=== PATIENT | female | born 1955 | race Caucasian/White ===

== ENCOUNTER 2017-01-07 14:55 | Emergency (ER) | payer OTHER ==
--- NOTE | ~2017-01-07 | EKG ---
PATIENT: AWA MCGINNIS UNIT #: [id number] Ventricular Rate: 97 BPM Atrial Rate: 97 BPM P-R Interval: 130 ms QRS Duration: 72 ms Q-T Interval: 384 ms QTC Calculation(Bezet): 487 ms P [place]: 48 degrees Calculated R [place]: 64 degrees Calculated T [place]: -35 degrees Diagnosis Line: Normal sinus rhythm Diagnosis Line: T wave abnormality, consider inferior ischemia Diagnosis Line: Abnormal ECG Diagnosis Line: When compared with ECG of 08-JUN-2014 11:14, Diagnosis Line: Vent. rate has increased BY 37 BPM Diagnosis Line: Inverted T waves have replaced nonspecific T wave Diagnosis Line: abnormality in Inferior leads Diagnosis Line: Confirmed by MAGDALENE BARRETO MD ([id number]) on 01/11/2017 Diagnosis Line: 9:39:56 AM INTERPRETING MD: ESTEVAN STONE
--- NOTE | ~2017-01-07 | CR72 ---
[facility]. [facility] A Service of [facility] & [facility] RADIOLOGY TEXT RESULTS PATIENT: AWA MCGINNIS LOCATION: SED : 55 UNIT #: [id number] AGE: [address]: Kimani Albarado MD SEX: F ORDER DR: [id number] [place] [id number] [id number] E MR#: [id number] #: [id number] NAME: AWA MCGINNIS : 1955 SEX: F STUDY DATE/TIME: 01/07/2017 15:22 UNIT: SED ROOM: STUDY DESCRIPTION: CR Chest Single View Portable Attending Physician: Kimani Albarado M.D. Ordering Physician: Kimani Albarado M.D. Primary Care Physician: Ophelia Roman MEDICAL IMAGING REPORT This report is preliminary unless electronic signature is present. EXAM Portable chest, 01/07 INDICATIONS Chest pain, shortness of air and headache for 45 minutes prior to arrival. History of smoking and hypertension. FINDINGS AP portable chest compared with 11/20/2013. Lungs are emphysematous but clear, except for granulomatous calcification. Cardiac and mediastinal contours are normal. No pneumothorax. Patient is status post cervical fusion. IMPRESSION Emphysema. No active disease. Dictated by... Elan Olsen Jr., M.D. THIS IS AN ELECTRONICALLY VERIFIED REPORT Elan Olsen Jr., M.D. at 01/07/2017 10:31 PM RLK/lynn TD: 01/07/2017 21:34 JOB #: [id number] MEDICAL IMAGING REPORT
[~2017-01-07 14:55] MED LIST: ALPRAZOLAM; ALPRAZOLAM PO; BARACLUDE PO; COUMADIN2.5 MG PO; CRESTOR10 MG PO; CYMBALTA PO; DENAVIR 1% TOP; DETROL LA PO; DIFLUCAN PO; IMDUR PO; IMITREX PO; LEVAQUIN PO; LISINOPRIL2.5 MG PO; LOPRESSOR; LOPRESSOR PO; METHADOSE PO; ORUDIS75 M1 PO; OXYCONTIN PO; PHENERGAN PO; PRILOSEC PO; PRILOSEC20 M1 PO; WELLBUTRIN PO
[2017-01-07 15:11] LABS: BASOPHIL% 0.6 % (0-2.5); EOSINOPHIL# 0.1 X10e3 (0-0.7); EOSINOPHIL% 1.3 % (0.0-7.0); HEMATOCRIT 46.5 % (35.0-45.0); HEMOGLOBIN 15.2 gm/dL (12.0-16.0); LYMPHOCYTE# 2.2 X10e3 (1.0-3.5); MEAN CELL VOLUME 91.4 FL (83-96); MEAN CORPUSCULAR HEMOGLOBIN 29.9 PG (28-34); MEAN CORPUSCULAR HGB CONC 32.7 g/dL (30-36); MEAN PLATELET VOLUME 8.3 FL (6.5-11.5); MONOCYTE# 0.6 X10e3 (0-1.0); MONOCYTE% 9.5 % (3.0-12.0); NEUTROPHIL# 3.2 X10e3 (1.5-7.1); NEUTROPHIL% 52.6 % (40-75); PLATELET COUNT 221 X10e3 (140-420); RED BLOOD COUNT 5.09 X10e (3.90-5.30); RED CELL DISTRIBUTION WIDTH 15.3 % (11.0-15.5); WHITE BLOOD COUNT 6.1 X10e3 (4.0-10.5)
[2017-01-07 15:14] LABS: DIFF IND NO
[2017-01-07 15:26] LABS: INR 1.1; PROTHROMBIN TIME (PATIENT) 12.1 SECONDS (9.5-12.4)
[2017-01-07 15:32] LABS: ALBUMIN SERUM 4.5 g/dL (3.5-5.0); ALKALINE PHOSPHATASE 84 U/L (32-92); ALT (SGPT) 11 U/L (10-40); AST (SGOT) 23 U/L (10-42); BILIRUBIN, DIRECT 0.1 mg/dL (0.0-0.2); BILIRUBIN,INDIRECT 0.5 mg/dL (0.0-0.9); BILIRUBIN,TOTAL 0.6 mg/dL (0.2-2.0); BLOOD UREA NITROGEN 14 mg/dL (9-23); BUN/CREATININE RATIO 15.55; CALCIUM SERUM 9.3 mg/dL (8.4-10.2); CARBON DIOXIDE 28 mmol/L (22-31); CHLORIDE 103 mmol/L (100-111); CREATININE SERUM 0.9 mg/dL (0.6-1.4); GLOM FILT RATE Estimated ABOVE60 mL/min (>60); GLUCOSE FASTING 98 mg/dL (70-110); POTASSIUM 3.9 mmol/L (3.5-5.1); PROTEIN TOTAL SERUM 8.1 g/dL (6.0-8.3); SODIUM 140 mmol/L (135-145)
[2017-01-07 15:33] LABS: POC - CKMB 2.2 ng/mL (0.0-7.9); POC - MYOGLOBIN 89.6 ng/mL (0.0-169.0); POC - TROPONIN <0.05 ng/mL (<=0.05)
[2017-01-07 15:34] LABS: PARTIAL THROMBOPLASTIN TIME 25.8 SECONDS (25.6-38.1)
[2017-01-07 17:08] LABS: POC - CKMB 1.4 ng/mL (0.0-7.9); POC - MYOGLOBIN 73.9 ng/mL (0.0-169.0); POC - TROPONIN <0.05 ng/mL (<=0.05)
[2017-01-07] MEDS ORDERED: BELSOMRA10 MG PO (17:54)
[2017-01-07] MEDS ORDERED: ZETIA PO (17:54)
[2017-01-07] MEDS ORDERED: CLOPIDOGREL75 MG PO (17:55)
[2017-01-07] MEDS ORDERED: ALBUTEROL17 GM INH (17:55)
[2017-01-07] MEDS ORDERED: NORVASC PO (17:55)
[2017-01-07] MEDS ORDERED: LISINOPRIL10 MG PO (17:56)
[2017-01-07] MEDS ORDERED: OMEPRAZOLE20 M1 PO (17:56)
[2017-01-07] MEDS ORDERED: FLORAJEN460 MG PO (17:56)
[2017-01-07] MEDS ORDERED: BRINTELLIX10 MG PO (17:57)
[2017-01-07] MEDS ORDERED: LUNESTA1 MG PO (17:58)
[2017-01-07] MEDS ORDERED: IMDUR PO (17:58)
[2017-01-07] MEDS ORDERED: METOPROLOL SUCC25 MG PO (17:58)
[2017-01-07] MEDS ORDERED: LIPITOR20 MG PO (17:59)
[2017-01-07] MEDS ORDERED: AMOXICILLIN875 MG PO (17:59)
[2017-01-07] MEDS ORDERED: NITROGLYGERIN0.4 MG SL (17:59)
[2017-01-07] MEDS ORDERED: CLARITIN10 M3 PO (18:00)
[2017-01-07] MEDS ORDERED: XANAX1 MG PO (18:00)
[2017-01-07] MEDS ORDERED: LAMICTAL100 MG PO (18:01)
[2017-01-07] MEDS ORDERED: LYRICA75 MG PO (18:01)
== END 2017-01-07 18:18 | disposition home or self-care (01) ==
LOC: SED 14:55
PROVIDERS: Emergency Medicine
DX: I20.9 Angina pectoris, unspecified (principal); I25.2 Old myocardial infarction; F17.200 Nicotine dependence, unspecified, uncomplicated; Z79.899 Other long term (current) drug therapy; Z88.8 Allergy status to other drugs, medicaments and biological substances
CPT/HCPCS: 36415; 71010; 80048; 80076; 82553; 83874; 84484; 85025; 85610; 85730; 93005; 99284